=== PATIENT | female | born 1980 | race American Indian/Alaskan Native ===

== ENCOUNTER 2017-09-18 14:38 | Emergency (ER) | payer MEDICAID ==
[2017-09-18 16:12] LABS: Hematocrit 36.5 % (30.3-42.9); Hemoglobin 11.8 gm/dl (10.1-14.3); Mean Corpuscular HGB Conc 32 % (30-34); Mean Corpuscular Hemoglobin 30 pg (28-32); Mean Corpuscular Volume 92 fl (79-97); Platelet Count 325 K/mm3 (140-440); Red Blood Count 3.97 M/mm3 (3.65-5.03); Red Cell Distribution Width 14.5 % (13.2-15.2)
[2017-09-18] MEDS ORDERED: TYLENOL #3 PO ONE (21:24)
[2017-09-18] MEDS ORDERED: TYLENOL ONE (22:06)
[2017-09-18] MEDS ORDERED: TYLENOL PO ONE (22:12)
[2017-09-18 22:16] VITALS: BP 138/92
--- NOTE | 2017-09-18 22:42 | Emergency Department Report ---
HPI - General Chief Complaint: Vaginal Bleeding Time Seen by Provider: 09/18/17 20:37 - HPI HPI: The patient is a 37-year-old female presents for evaluation of abdominal pain and vaginal bleeding. The patient reports 3 days of intermittent scant vaginal bleeding, and cramping lower abdominal pain, moderate severity, radiating to the back, exacerbated with lying on the her side. She states that she has not received confirmatory ultrasound of IUP. The patient denies fever, trauma to the abdomen, nausea, vomiting, chest pain, dyspnea, diarrhea, blood in the stool, dark tarry stool, dysuria, hematuria, flank pain, genital discharge, inability to pass flatus. ED Past Medical Hx - Past Medical History Previous Medical History?: No - Surgical History Additional Surgical History: Gastric bypass in 2013 - Social History Smoking Status: Never Smoker Substance Use Type: None ED Review of Systems ROS: Stated complaint: /BLEEDING Other details as noted in HPI Constitutional: denies: fever ENT: denies: throat or neck pain Respiratory: denies: cough, shortness of breath Cardiovascular: denies: chest pain Endocrine: denies unexplained weight loss or gain Gastrointestinal: reports abdominal pain denies: nausea Genitourinary: denies: dysuria Musculoskeletal: denies: leg swelling Skin: denies: rash Neurological: denies: headache Hematological/Lymphatic: denies: easy bleeding or easy bruising Psych: denies sadness or hopelessness Physical Exam - Physical Exam Vital Signs: Vital Signs 09/18/17 09/18/17 09/18/17 20:37 20:48 21:00 Temperature 98.8 F Pulse Rate 76 Respiratory 18 Rate Blood Pressure 145/97 138/92 Blood Pressure 145/97 [Right] O2 Sat by Pulse 100 100 97 Oximetry 09/18/17 22:06 Temperature Pulse Rate Respiratory Rate Blood Pressure 138/92 Blood Pressure [Right] O2 Sat by Pulse 96 Oximetry Physical Exam: General: well-nourished, well-developed, no acute distress Head: Normocephalic, atraumatic Eyes: normal sclera ENT: Mucous membranes are pink and moist Neck: trachea midline, neck supple, No neck stiffness, no cervical adenopathy Respiratory: Breath sounds equal bilaterally, no wheezing, rales, or rhonchi Cardio: S1 and S2 present, no murmurs, rubs, gallops, capillary refill is brisk Abdomen: Normoactive bowel sounds, soft abdomen, suprapubic ttp present, no rigidity, no guarding or rebound tenderness Musc: No pitting edema Skin: No rash Neuro: no facial drooping, normal speech Psych: Normal affect ED Course Vital Signs 09/18/17 09/18/17 09/18/17 20:37 20:48 21:00 Temperature 98.8 F Pulse Rate 76 Respiratory 18 Rate Blood Pressure 145/97 138/92 Blood Pressure 145/97 [Right] O2 Sat by Pulse 100 100 97 Oximetry 09/18/17 22:06 Temperature Pulse Rate Respiratory Rate Blood Pressure 138/92 Blood Pressure [Right] O2 Sat by Pulse 96 Oximetry ED Medical Decision Making - Lab Data Result diagrams: 09/18/17 15:36 - Medical Decision Making The patient was seen and examined by myself. The patient is placed on a laboratory monitor and continuous pulse ox. On initial evaluation, the patient was found to be in no distress. Evaluation orders are placed. The patient is given a tablet of Tylenol for her pain. Lab results revealed elevated hCG of 150 , and otherwise labs were un-revealing, including WBC, hemoglobin, hematocrit, electrolytes, renal function, urinalysis. Blood type is Rh+. Ultrasound of the pelvis is negative for intrauterine , and is unable to rule out ectopic present. The patient was reevaluated and reported that their symptoms were markedly improved. The patient is informed that ectopic patient was unable to be ruled out, and she is instructed to obtain repeat beta hCG and 48 hours for trending of hCG level. The patient is stable for discharge with outpatient follow-up. The patient is given follow-up and return instructions. The patient expressed understanding and agreed with the plan. The patient is discharged in stable condition. Critical care attestation.: If time is entered above; I have spent that time in minutes in the direct care of this critically ill patient, excluding procedure time. ED Disposition Clinical Impression: Threatened miscarriage in early , Acute suprapubic pain, Vaginal bleeding during Disposition: TO HOME OR SELFCARE Is pt being admited?: No Does the pt Need Aspirin: No Condition: Stable Instructions: Threatened Miscarriage (ED), Abdominal Pain in (ED) Referrals: LEELA MELLO MD [Staff Physician] - 3-5 Days Time of Disposition: 22:46
--- NOTE | 2017-09-19 00:17 | Ultrasound Report ---
FINAL REPORT EXAM: US OB < = 14 WEEKS FETUS HISTORY: ab pain, vb, preg TECHNIQUE: Transabdominal imaging was obtained of the pelvis. FINDINGS: The uterus is anteverted measuring 8.6 cm x 4.7 cm x 7.1 cm. The endometrial thickness is 17.9 mm. There is a hypoechoic area within the endometrium measuring 1.8 cm x 0.8 cm x 1.8 cm. As to whether this represents retained products of conception is uncertain. A normal-appearing gestational sac is not identified. Free fluid is not seen. The right ovary measures 5.9 cm x 3.3 cm x 3.3 cm. Within the right ovary is a complex cyst measuring up to 4.4 cm in diameter. The left ovary is not seen. IMPRESSION: Thickened endometrium with indeterminate hypoechoic structure within the endometrial cavity measuring 1.8 cm x 0.8 cm x 1.8 cm. As to whether this represents retained products conception is uncertain. A normal-appearing gestational sac is not identified. Complex 4.4 cm right ovarian cyst noted. Left ovary not identified.
--- NOTE | 2017-09-19 00:37 | Ultrasound Report ---
FINAL REPORT EXAM: US OB TRANSVAGINAL HISTORY: ab pain, vb, preg TECHNIQUE: Transvaginal imaging was obtained of the pelvis including Doppler interrogation of the adnexa. FINDINGS: The uterus is anteverted measuring 8.6 cm x 4.7 cm x 7.1 cm. The endometrial thickness is 17.9 mm. Within the endometrium is a hypoechoic area measuring 1.8 cm x 0.8 cm x 1.8 cm. A normal-appearing gestational sac is not seen. Free fluid is not identified. The right ovary measures 5.9 cm x 3.3 cm x 3.3 cm. Within the right ovary is a complex cyst measuring 4.4 cm in diameter. The left ovary is not seen. IMPRESSION: Thickened endometrium containing a hypoechoic area with measurements as described. As to whether this represents retained products of conception is uncertain. A normal-appearing gestational sac is not identified at this time. Complex of functional cyst in the right ovary measuring 4.4 cm in diameter possibly representing a corpus luteum cyst. No evidence of free fluid.
== END 2017-09-19 | disposition home or self-care (01) ==
LOC: ED 14:38
DX: O20.0 Threatened abortion (principal); Z88.5 Allergy status to narcotic agent; Z3A.01 Less than 8 weeks gestation of pregnancy
CPT/HCPCS: 36415; 76801; 76817; 84702; 85027; 86900; 86901; 99284

== ENCOUNTER 2020-04-27 23:15 | Emergency (ER) | payer SELFPAY ==
[2020-04-27] MEDS ORDERED: IBUPROFEN 600 MG TAB PO ONE (23:31)
[2020-04-27] MEDS ORDERED: predniSONE 20 MG TAB PO ONE (23:31)
[2020-04-27] MEDS ORDERED: ONDANSETRON 4 MG ODT TAB PO ONE (23:33)
[2020-04-27] MEDS ORDERED: HYDROcodone/ACETAMINOPHEN 5-325 MG TAB PO ONE (23:33)
--- NOTE | 2020-04-27 23:36 | Emergency Department Report ---
ED Fall HPI - General Stated Complaint: SEIZURE Source: patient Mode of arrival: Ambulatory - History of Present Illness Initial Comments: Patient is a 40-year-old -Citizen Of [place] female with a history of seizures with occasional exacerbations who presents to the ED with severe right shoulder pain after she slipped and fell down when having a seizure 3 weeks ago. Patient also complains of left flank pain with urinary frequency and urgency. Patient states that the pain in the right shoulder has worsened in the last 2 days. Patient states that the pain is worse with ambulation or active range of motion of the right arm. Patient denies recent seizure, nausea, vomiting, head or neck pain, chest pain, shortness of breath, back pain, change in vision, fever, chills,. MD Complaint: fall, other (Right shoulder pain, left flank pain) -: Sudden, week(s) (3) Fall From: standing (during seizure) When Fall Occurred: other (h/o seizures, 3 weeks ago) Fall Witnessed: yes, by family Place Fall Occurred: home Loss of Consciousness: yes Prolonged Down Time?: no Symptoms Prior to Fall: other (seizures, chronic) Location: other (right shoulder pain, left flank pain) Location - Extremities: Right: Shoulder (pain) Severity: severe Severity scale (0 -10): 8 Quality: sharp, aching Context: seizure Associated Symptoms: denies. denies: headache, neck pain, numbness, weakness, chest paint, shortness of breath, abdominal pain, hematuria, unable to walk, lightheaded, vertigo, confusion - Related Data Previous Rx's Medication Instructions Recorded Last Taken Type Acetaminophen 500 mg PO Q6HR PRN #30 tablet 09/18/17 Unknown Rx Pnv No.95/Ferrous Fum/Folic AC 1 each PO QDAY #31 tablet 09/18/17 Unknown Rx [ Vitamin Tablet] levETIRAcetam [Keppra TAB] 1,000 mg PO BID #60 tab 09/15/19 Unknown Rx Acetaminophen [Tylenol] 1,000 mg PO Q6HR PRN #40 tablet 04/28/20 Unknown Rx Docusate Sodium [Dok] 100 mg PO DAILY #30 tablet 04/28/20 Unknown Rx predniSONE [Deltasone] 60 mg PO QDAY #15 tab 04/28/20 Unknown Rx Allergies Allergy/AdvReac Type Severity Reaction Status Date / Time codeine AdvReac Unknown Verified 09/18/17 22:14 NSAIDS (Non-Steroidal AdvReac Unknown Verified 04/28/20 02:58 Anti-Inflamma ED Review of Systems ROS: Stated complaint: SEIZURE Other details as noted in HPI Constitutional: denies: chills, fever Eyes: denies: eye pain, eye discharge, vision change ENT: denies: ear pain, throat pain Respiratory: denies: cough, shortness of breath, wheezing Cardiovascular: denies: chest pain, palpitations Endocrine: no symptoms reported Gastrointestinal: other (Left flank pain). denies: abdominal pain, nausea, diarrhea Genitourinary: urgency, frequency. denies: dysuria, discharge Musculoskeletal: arthralgia (Right shoulder and left flank pain). denies: back pain, joint swelling Skin: denies: rash, lesions Neurological: denies: headache, weakness, paresthesias Psychiatric: denies: anxiety, depression Hematological/Lymphatic: denies: easy bleeding, easy bruising ED Past Medical Hx - Past Medical History Hx Seizures: Yes Additional medical history: Botulism - Surgical History Additional Surgical History: Gastric bypass in 2013 - Social History Smoking Status: Never Smoker Substance Use Type: None - Medications Home Medications: Home Medications Medication Instructions Recorded Confirmed Last Taken Type Acetaminophen 500 mg PO Q6HR PRN #30 tablet 09/18/17 Unknown Rx Pnv No.95/Ferrous Fum/Folic AC 1 each PO QDAY #31 tablet 09/18/17 Unknown Rx [ Vitamin Tablet] levETIRAcetam [Keppra TAB] 1,000 mg PO BID #60 tab 09/15/19 Unknown Rx Acetaminophen [Tylenol] 1,000 mg PO Q6HR PRN #40 tablet 04/28/20 Unknown Rx Docusate Sodium [Dok] 100 mg PO DAILY #30 tablet 04/28/20 Unknown Rx predniSONE [Deltasone] 60 mg PO QDAY #15 tab 04/28/20 Unknown Rx ED Physical Exam - General General appearance: alert, in no apparent distress - Head Head exam: Present: atraumatic, normocephalic, normal inspection - Eye Eye exam: Present: normal appearance, PERRL, EOMI Pupils: Present: normal accommodation - ENT ENT exam: Present: normal exam, normal orophraynx, mucous membranes moist, TM's normal bilaterally, normal external ear exam - Neck Neck exam: Present: normal inspection, full ROM - Respiratory Respiratory exam: Present: normal lung sounds bilaterally. Absent: respiratory distress, wheezes, rales, stridor, chest wall tenderness, accessory muscle use, decreased breath sounds, prolonged expiratory - Cardiovascular Cardiovascular Exam: Present: regular rate, normal rhythm, normal heart sounds. Absent: systolic murmur, diastolic murmur, rubs, gallop - GI/Abdominal GI/Abdominal exam: Present: soft, normal bowel sounds. Absent: tenderness, guarding, rebound, hyperactive bowel sounds, hypoactive bowel sounds, mass - Extremities Exam Extremities exam: Present: normal inspection, full ROM, tenderness (Palpable right shoulder tenderness) - Back Exam Back exam: Present: normal inspection, full ROM, tenderness (Palpable left lumbosacral paraspinal musculoskeletal tenderness), muscle spasm - Neurological Exam Neurological exam: Present: alert, oriented X3, CN II-XII intact, normal gait, reflexes normal - Psychiatric Psychiatric exam: Present: normal affect, normal mood - Skin Skin exam: Present: warm, dry, intact, normal color. Absent: rash ED Medical Decision Making - Lab Data Result diagrams: 04/28/20 00:02 04/28/20 00:02 - Radiology Data Radiology results: report reviewed, [place] [address] Cat Scan Report Signed Patient: NOELLE ESCALERA MR#: [id number] : 1980 Acct:[id number] Age/Sex: 40 / F ADM Date: 04/27/20 Loc: ED Attending Dr: Ordering Physician: CAITY JIMENEZ Date of Service: 04/28/20 Procedure(s): CT abdomen pelvis wo con Accession Number(s): [id number] cc: CAITY JIMENEZ CT ABDOMEN AND PELVIS WITHOUT CONTRAST INDICATION / CLINICAL INFORMATION: Patient complains of "LEFT" sided flank pain. No hx of stone(s). TECHNIQUE: Axial CT images were obtained through the abdomen and pelvis without IV contrast. All CT scans at this location are performed using CT dose reduction for ALARA by means of automated exposure control. COMPARISON: None available. FINDINGS: LOWER CHEST: No significant abnormality LIVER: No significant abnormality GALLBLADDER/BILIARY TREE: Cholelithiasis. No CT evidence of cholecystitis. No biliary dilatation. PANCREAS: No significant abnormality SPLEEN: No significant abnormality ADRENALS: No significant abnormality KIDNEYS / URETER: Punctate nonobstructing right renal calculus. No ureteral calculus or hydronephrosis. URINARY BLADDER: No significant abnormality REPRODUCTIVE ORGANS: No significant abnormality STOMACH / SMALL BOWEL: Postoperative changes of gastric bypass. There is no evidence of obstruction. No significant bowel inflammation. COLON: Moderate retained stool throughout the colon. There is no colonic wall thickening or pericolonic inflammatory stranding. The appendix is normal in caliber. LYMPH NODES: No significant adenopathy. VASCULATURE: Mild atherosclerotic calcification without acute abnormality. OTHER: No free air, free fluid, or focal fluid collection is identified. SKELETAL SYSTEM: Moderate disc space height loss at L4-L5 with large central disc protrusion, resulting in severe narrowing of the central canal. There is also severe narrowing of the left luis ral foramen at L5-S1. No acute osseous findings. IMPRESSION: 1. No acute abnormality of the abdomen or pelvis. 2. Large central disc protrusion at L4-L5 resulting in severe narrowing of the central canal. There is also severe narrowing of the left neural foramen at L5-S1 primarily related to facet joint arthropathy. 3. Moderate retained stool throughout the colon may reflect constipation. Signer Name: Janet Hare MD Signed: 04/28/2020 5:12 AM Workstation Name: [id number] Transcribed By: ROSEMARIE Dictated By: JANET HARE MD Electronically Authenticated By: JANET HARE MD Signed Date/Time: 04/28/20 0512 DD/ 0505 TD/TT: - Medical Decision Making This is a 40-year-old -Citizen [place] female with a history of seizures with occasional exacerbations who presents to the ED with severe right shoulder pain after she slipped and fell down when having a seizure 3 weeks ago. Patient also complains of left flank pain with urinary frequency and urgency. Patient sta santino that the pain in the right shoulder has worsened in the last 2 days. Patient states that the pain is worse with ambulation or active range of motion of the right arm. In the ED, patient is alert and oriented x3 and is not in any distress. Patient was treated for pain in the ED and right shoulder x-ray shows no acute fractures or subluxations. Lab test results were reviewed and are all nonactionable except for urinalysis that showed mild urinary tract infection. Abdomen pelvis CT scan without contrast showed no acute abnormality of the abdomen or pelvis. However it also showed large central disc protrusion at L4-L5 resulting in severe narrowing of the central canal. There is also se beverley narrowing of the left neural foramen at L5-S1 primarily related to facet joint arthropathy. It also showed moderate retained stool throughout the colon may reflect constipation. On reevaluation, patient's pain is well controlled medications. Patient was discharged home on medications for pain and muscle relaxant and also stool softeners and was advised to follow-up with her primary care physician in 5 to 7 days for reevaluation or return to the ED immediately if symptoms get worse. - Differential Diagnosis Kidney stones; UTI; shoulder sprain; muscle spasm of back Critical care attestation.: If time is entered above; I have spent that time in minutes in the direct care of this critically ill patient, excluding procedure time. ED Disposition Clinical Impression: Acute left flank pain, Acute urinary tract infection, Spasm of muscle of lower back Sprain of right shoulder Qualifiers: Encounter type: initial encounter Shoulder sprain type: unspecified sprain Qualified Code(s): S43.401A - Unspecified sprain of right shoulder joint, initial encounter Constipation Qualifiers: Constipation type: other constipation type Qualified Code(s): K59.09 - Other constipation Disposition: DC- TO HOME OR SELFCARE Is pt being admited?: No Does the pt Need Aspirin: No Condition: Stable Instructions: Shoulder Sprain, Urinary Tract Infection, Adult, [id number], Abdominal Pain, Adult, [id number], Flank Pain, Adult, [id number]-[id number], Constipation, Adult, [id number], Muscle Cramps and Spasms Additional Instructions: All lab test results were reviewed and showed no acute abnormalities except mild urinary tract infection. The abdomen pelvis CT scan without contrast showed no acute abnormalities except degenerative lumbar disc disease and constipation. Left shoulder x-ray showed no acute fractures or subluxations. Therefore take medications with food, drink plenty of fluids and follow-up with your primary care physician in 5 to 7 days for reevaluation. Prescriptions: Acetaminophen [Tylenol] 1,000 mg PO Q6HR PRN #40 tablet PRN Reason: Pain , Severe (7-10) predniSONE [Deltasone] 60 mg PO QDAY #15 tab Docusate Sodium [Dok] 100 mg PO DAILY #30 tablet Referrals: [facility] [Provider Group] - 7-10 days Time of Disposition: 04:07 Print Language: BAHRAINI
--- NOTE | 2020-04-28 00:05 | XRay Report ---
RIGHT SHOULDER 3 VIEW(S) INDICATION / CLINICAL INFORMATION: Fall - pain COMPARISON: None available. FINDINGS: BONES / JOINT(S): No acute fracture or subluxation. No significant arthritis. SOFT TISSUES: No significant abnormality. ADDITIONAL FINDINGS: None. IMPRESSION: No acute osseous findings in the right shoulder. Signer Name: Mike Low MD Signed: 04/28/2020 12:00 AM Workstation Name: [id number]
[2020-04-28 00:28] LABS: Basophils % (Auto) 0.5 % (0.0-1.8); Eosinophils # (Auto) 0.2 K/mm3 (0.0-0.4); Eosinophils % (Auto) 2.1 % (0.0-4.3); Hemoglobin 10.5 gm/dl (10.1-14.3); Lymphocytes # (Auto) 1.9 K/mm3 (1.2-5.4); Lymphocytes % (Auto) 21.7 % (13.4-35.0); Mean Corpuscular HGB Conc 32 % (30-34); Mean Corpuscular Volume 82 fl (79-97); Monocytes # (Auto) 0.7 K/mm3 (0.0-0.8); Monocytes % (Auto) 7.5 % (0.0-7.3); Platelet Count 395 K/mm3 (140-440); Red Blood Count 4.05 M/mm3 (3.65-5.03); Red Cell Distribution Width 20.5 % (13.2-15.2)
[2020-04-28 00:36] LABS: Alanine Aminotransferase 42 units/L (7-56); Albumin 4.3 g/dL (3.9-5); Blood Urea Nitrogen 9 mg/dL (7-17); Calcium 7.5 mg/dL (8.4-10.2); Hemolysis Index 6
[2020-04-28 00:57] LABS: BUN/Creatinine Ratio 15
[2020-04-28] MEDS: IBUPROFEN 600 MG TAB PO ONE ×2 (02:56→03:00)
[2020-04-28] MEDS ORDERED: ONDANSETRON 4 MG ODT TAB PO ONE (03:20)
[2020-04-28] MEDS ORDERED: predniSONE 20 MG TAB PO ONE (03:20)
[2020-04-28] MEDS ORDERED: HYDROcodone/ACETAMINOPHEN 5-325 MG TAB PO ONE (03:20)
[2020-04-28 03:40] LABS: Bacteria,Urine 2+ /HPF (Negative); Bilirubin,Urine NEG (Negative); Blood,Urine LG (Negative); Color,Urine Yellow (Yellow); Hyaline Casts,Urine 4 /LPF; Mucus,Urine 1+ /HPF; Urobilinogen,Urine < 2.0 mg/dL (<2.0)
--- NOTE | 2020-04-28 05:16 | Cat Scan Report ---
CT ABDOMEN AND PELVIS WITHOUT CONTRAST INDICATION / CLINICAL INFORMATION: Patient complains of "LEFT" sided flank pain. No hx of stone(s). TECHNIQUE: Axial CT images were obtained through the abdomen and pelvis without IV contrast. All CT scans at this location are performed using CT dose reduction for ALARA by means of automated exposure control. COMPARISON: None available. FINDINGS: LOWER CHEST: No significant abnormality LIVER: No significant abnormality GALLBLADDER/BILIARY TREE: Cholelithiasis. No CT evidence of cholecystitis. No biliary dilatation. PANCREAS: No significant abnormality SPLEEN: No significant abnormality ADRENALS: No significant abnormality KIDNEYS / URETER: Punctate nonobstructing right renal calculus. No ureteral calculus or hydronephrosi s. URINARY BLADDER: No significant abnormality REPRODUCTIVE ORGANS: No significant abnormality STOMACH / SMALL BOWEL: Postoperative changes of gastric bypass. There is no evidence of obstruction. No significant bowel inflammation. COLON: Moderate retained stool throughout the colon. There is no colonic wall thickening or pericolon ic inflammatory stranding. The appendix is normal in caliber. LYMPH NODES: No significant adenopathy. VASCULATURE: Mild atherosclerotic calcification without acute abnormality. OTHER: No free air, free fluid, or focal fluid collection is identified. SKELETAL SYSTEM: Moderate disc space height loss at L4-L5 with large central disc protrusion, resulti ng in severe narrowing of the central canal. There is also severe narrowing of the left neural forame n at L5-S1. No acute osseous findings. IMPRESSION: 1. No acute abnormality of the abdomen or pelvis. 2. Large central disc protrusion at L4-L5 resulting in severe narrowing of the central canal. There i s also severe narrowing of the left neural foramen at L5-S1 primarily related to facet joint arthropa thy. 3. Moderate retained stool throughout the colon may reflect constipation. Signer Name: Mike Low MD Signed: 04/28/2020 5:12 AM Workstation Name: [id number]
[2020-04-28] MEDS ORDERED: KETOROLAC 30 MG/1 ML INJ IM ONE (05:58)
[2020-04-28] MEDS ORDERED: ACETAMINOPHEN 500 MG TAB PO ONE (05:59)
[2020-04-28 06:23] VITALS: BP 131/91
== END 2020-04-28 06:21 | disposition home or self-care (01) ==
LOC: ED 23:15
DX: S43.401A Unspecified sprain of right shoulder joint, initial encounter (principal); K59.00 Constipation, unspecified; N39.0 Urinary tract infection, site not specified; M62.830 Muscle spasm of back; G40.909 Epilepsy, unspecified, not intractable, without status epilepticus; Z79.899 Other long term (current) drug therapy; Z88.6 Allergy status to analgesic agent; Z88.8 Allergy status to other drugs, medicaments and biological substances; W18.30XA Fall on same level, unspecified, initial encounter; Y93.89 Activity, other specified; Y92.89 Other specified places as the place of occurrence of the external cause; Y99.8 Other external cause status
CPT/HCPCS: 36415; 73030; 74176; 80053; 81001; 85025; 87086; 96372; 99284; J1885; J7512; Q0162

== ENCOUNTER 2020-07-08 12:11 | Emergency (ER) | payer BC, MEDICAID, OTHER ==
--- NOTE | 2020-07-08 12:47 | Event Note ---
ED Screening Note ED Screening Note: PAIN R SHOULDER SP FALL MONDAY SHE HAS SZ DO AND HAD SZ FRI RESULTING IN FALL This initial assessment/diagnostic orders/clinical plan/treatment(s) is/are subject to change based on patients health status, clinical progression and re- assessment by fellow clinical providers in the ED. Further treatment and workup at subsequent clinical providers discretion. Patient/guardian urged not to elope from the ED as their condition may be serious if not clinically assessed and managed. Initial orders include: XR RO FX
--- NOTE | 2020-07-08 13:08 | Emergency Department Report ---
ED Upper Extremity Inj HPI - General Chief Complaint: Extremity Injury, Upper Stated Complaint: RT SHOULDER PAIN/SEIZURE Time Seen by Provider: 07/08/20 12:46 Source: patient Mode of arrival: Ambulatory Limitations: No Limitations - History of Present Illness Initial Comments: Patient is a 40-year-old -[place] female that comes to the emergency room after having a seizure on Monday, this is now 5 days ago. She fell at that time. She injured her right shoulder. She has nursed at home with no relief of pain. She has an ongoing seizure disorder so the seizure is not her complaint and it is a chronic issue that she sees her primary care neurologist for. Patient denies any other injury. Patient is ambulatory nontoxic and [id number] on arrival to the ER Patient has full range of motion but limited with pain of the right shoulder. She is guarding it. She has distal intact peripheral vascular neurovascular exam. MD Complaint: Injury to:: right -: Sudden, days(s) Other Extremity Injury: Shoulder: Right Other Injuries: none Handedness: right Place: home Improves With: immobilization Worsens With: movement of extremity Context: fall Associated Symptoms: denies other symptoms - Related Data Previous Rx's Medication Instructions Recorded Last Taken Type Acetaminophen 500 mg PO Q6HR PRN #30 tablet 09/18/17 Unknown Rx Pnv No.95/Ferrous Fum/Folic AC 1 each PO QDAY #31 tablet 09/18/17 Unknown Rx [ Vitamin Tablet] levETIRAcetam [Keppra TAB] 1,000 mg PO BID #60 tab 09/15/19 Unknown Rx Acetaminophen [Tylenol] 1,000 mg PO Q6HR PRN #40 tablet 04/28/20 Unknown Rx Docusate Sodium [Dok] 100 mg PO DAILY #30 tablet 04/28/20 Unknown Rx levETIRAcetam [Keppra TAB] 750 mg PO BID #120 tablet 04/28/20 Unknown Rx predniSONE [Deltasone] 60 mg PO QDAY #15 tab 04/28/20 Unknown Rx Allergies Allergy/AdvReac Type Severity Reaction Status Date / Time NSAIDS (Non-Steroidal AdvReac Unknown Verified 07/08/20 12:49 Anti-Inflamma ED Review of Systems ROS: Stated complaint: RT SHOULDER PAIN/SEIZURE Other details as noted in HPI Comment: All other systems reviewed and negative ED Past Medical Hx - Past Medical History Previous Medical History?: Yes Hx Seizures: Yes Additional medical history: Botulism - Surgical History Past Surgical History?: Yes Additional Surgical History: Gastric bypass in 2014 - Family History Family history: no significant - Social History Smoking Status: Never Smoker Substance Use Type: None - Medications Home Medications: Home Medications Medication Instructions Recorded Confirmed Last Taken Type Acetaminophen 500 mg PO Q6HR PRN #30 tablet 09/18/17 Unknown Rx Pnv No.95/Ferrous Fum/Folic AC 1 each PO QDAY #31 tablet 09/18/17 Unknown Rx [ Vitamin Tablet] levETIRAcetam [Keppra TAB] 1,000 mg PO BID #60 tab 09/15/19 Unknown Rx Acetaminophen [Tylenol] 1,000 mg PO Q6HR PRN #40 tablet 04/28/20 Unknown Rx Docusate Sodium [Dok] 100 mg PO DAILY #30 tablet 04/28/20 Unknown Rx levETIRAcetam [Keppra TAB] 750 mg PO BID #120 tablet 04/28/20 Unknown Rx predniSONE [Deltasone] 60 mg PO QDAY #15 tab 04/28/20 Unknown Rx ED Physical Exam - General Limitations: No Limitations General appearance: alert, in no apparent distress - Head Head exam: Present: atraumatic, normocephalic - Eye Eye exam: Present: normal appearance - ENT ENT exam: Present: mucous membranes moist - Neck Neck exam: Present: normal inspection - Respiratory Respiratory exam: Present: normal lung sounds bilaterally. Absent: respiratory distress - Cardiovascular Cardiovascular Exam: Present: regular rate, normal rhythm. Absent: systolic murmur, diastolic murmur, rubs, gallop - GI/Abdominal GI/Abdominal exam: Present: soft, normal bowel sounds - Extremities Exam Extremities exam: Present: normal inspection - Back Exam Back exam: Present: normal inspection - Neurological Exam Neurological exam: Present: alert, oriented X3 - Psychiatric Psychiatric exam: Present: normal affect, normal mood - Skin Skin exam: Present: warm, dry, intact, normal color. Absent: rash ED Medical Decision Making - Radiology Data Radiology results: report reviewed, image reviewed NAP - Medical Decision Making xray neg medicated for pain sling for comfort dc home with dc plan of care including pcp/ortho follow up. Patient understands that the sling is only for comfort and should not be used for a prolonged period of time for it can cause disuse injury. She verbalizes understanding. Vital signs are normal as documented manually by RN - Differential Diagnosis RO FX Critical care attestation.: If time is entered above; I have spent that time in minutes in the direct care of this critically ill patient, excluding procedure time. ED Disposition Clinical Impression: Shoulder pain, Fall, History of seizure disorder Disposition: DC-01 TO HOME OR SELFCARE Is pt being admited?: No Does the pt Need Aspirin: No Condition: Stable Additional Instructions: SLING FOR COMFORT ALTERNATE WARM AND COLD COMPRESSES FOLLOW UP WITH DR VALENTINE- ORTHO REFERRAL BELOW continue seizure medications Referrals: PAULETTE VALENTINE MD [Staff Physician] - 3-5 Days Forms: Work/School Release Form(ED) Time of Disposition: 13:06
--- NOTE | 2020-07-08 13:19 | XRay Report ---
XR shoulder RT, 4 views INDICATION / CLINICAL INFORMATION: PAIN R SHOULDER COMPARISON: 04/27/2020 FINDINGS: BONES / JOINT(S): No acute fracture or subluxation. No significant arthritis. SOFT TISSUES: No significant abnormality. ADDITIONAL FINDINGS: None. IMPRESSION: No acute osseous findings in the right shoulder. Signer Name: Mike Low MD Signed: 07/08/2020 1:14 PM Workstation Name: [id number]
[2020-07-08] MEDS ORDERED: dexAMETHasone 4 MG/ML VIAL IM ONE (13:28)
== END 2020-07-08 13:58 | disposition home or self-care (01) ==
LOC: ED 12:11
DX: M25.511 Pain in right shoulder (principal); G40.909 Epilepsy, unspecified, not intractable, without status epilepticus; Z79.899 Other long term (current) drug therapy; Z88.5 Allergy status to narcotic agent; W18.30XA Fall on same level, unspecified, initial encounter; Y93.89 Activity, other specified; Y92.89 Other specified places as the place of occurrence of the external cause; Y99.8 Other external cause status
CPT/HCPCS: 73030; 96372; 99283; J1100